=== PATIENT | female | born 1980 | race Hispanic/Latino ===

== ENCOUNTER 2020-09-11 04:16 | Emergency (ER) | payer OTHER, SELFPAY ==
[2020-09-11 05:18] LABS: Urine Blood NEGATIVE (NEG); Urine Glucose NEGATIVE (NEG); Urine Protein 1+ (NEG); Urine pH 8.5 (5.0-7.0)
[2020-09-11 06:25] LABS: Absolute Lymphocytes (CBC) 1.4 K/uL (0.7-4.9); Basophils % 0.6 % (0-1.3); Hematocrit 41.1 % (36.0-45.0); Lymphocytes % 9.9 % (15.3-44.8); MPV 8.3 fL (7.6-11.3)
[2020-09-11 06:52] LABS: ALT/SGPT 25 U/L (12-78); AST/SGOT 19 U/L (15-37); Albumin 4.1 g/dL (3.4-5.0); Alkaline Phosphatase 101 U/L (45-117); BUN Blood Urea Nitrogen 6 mg/dL (7-18); Bicarbonate 24 mmol/L (21-32); Bilirubin Direct < 0.1 mg/dL (0-0.2); Bilirubin Total 0.3 mg/dL (0.2-1.0); Glucose Level 132 mg/dL (74-106); Lipase 104 U/L (73-393); Potassium 3.6 mmol/L (3.5-5.1); Protein, Total 9.4 g/dL (6.4-8.2); Sodium Level 143 mmol/L (136-145)
[2020-09-11 06:55] LABS: Blood Morphology Comment NOT SEEN (NOT SEEN); Platelet Estimate ADEQ; White Blood Cell Scan OK (OK)
[2020-09-11] MEDS ORDERED: ONDANSETRON 4 MG/2 ML VIAL ONE (08:12)
[2020-09-11] MEDS ORDERED: NA CHLORIDE 0.9% 1,000 ML ONE (08:13)
--- NOTE | 2020-09-11 08:18 | RAD REPORT ---
EXAM DESCRIPTION: CTAbdomen Pelvis W Contrast - 09/11/2020 7:59 am CLINICAL HISTORY: Abdominal pain. ABD PAIN COMPARISON: No comparisons TECHNIQUE: Biphasic CT imaging of the abdomen and pelvis was performed with 100 ml non-ionic IV cont rast. All CT scans are performed using dose optimization technique as appropriate and may include automated exposure control or mA/KV adjustment according to patient size. FINDINGS: The lung bases are clear. Cholecystectomy clips. The liver, spleen, pancreas, adrenal glands and kidneys are within normal limits. No bowel obstruction, free air, free fluid or abscess. The appendix is normal. No evidence of signi ficant lymphadenopathy. No suspicious bony findings. IMPRESSION: No acute intra-abdominal or pelvic finding.
--- NOTE | 2020-09-11 09:23 | ER ---
[facility] Name: Grace Reich Age: 40 yrs Sex: Female : 1980 Arrival Date: 09/11/2020 Time: 04:17 Bed 19 Private MD: Diagnosis: Nausea and vomiting;Diarrhea, unspecified;Gastroenteritis;Abdominal and pelvic pain Presentation: 09/11 04:25 Chief complaint: Patient states: she has had non-stop vomiting with diarrhea and lower bb left abdominal pain since 1900 last night. Coronavirus screen: Client reports previous positive COVID test result. Date of collection: February 2020. Ebola Screen: No symptoms or risks identified at this time. Initial Sepsis Screen: Does the patient meet any 2 criteria? No. Patient's initial sepsis screen is negative. Does the patient have a suspected source of infection? No. Patient's initial sepsis screen is negative. Risk Assessment: Do you want to hurt yourself or someone else? Patient reports no desire to harm self or others. Onset of symptoms was September 10, 2020. 04:25 Method Of Arrival: Ambulatory bb 04:25 Acuity: FRANDY 3 bb Triage Assessment: 04:27 General: Appears uncomfortable, Behavior is calm, cooperative. Pain: Complains of pain bb in abdomen Pain currently is 7 out of 10 on a pain scale. Neuro: Level of Consciousness is awake, alert, obeys commands, Oriented to person, place, time, situation. Respiratory: Respiratory effort is even, unlabored, Respiratory pattern is regular. GI: Reports lower abdominal pain, diarrhea, vomiting. RESEARCH CHEF: 04:27 LMP 08/27/2020 bb Historical: - Allergies: 04:27 No Known Allergies; bb - Home Meds: 04:27 None [Active]; bb - PMHx: 04:27 None; bb - PSHx: 04:27 Cholecystectomy; bb - Immunization history:: Adult Immunizations up to date. - Social history:: Smoking status: Patient denies any tobacco usage or history of. Screenin:14 Abuse screen: Denies threats or abuse. Denies injuries from another. Nutritional sf screening: No deficits noted. Tuberculosis screening: No symptoms or risk factors identified. Never had TB. Possible symptoms: None Risk factors: None. Fall Risk None identified. No fall in past 12 months (0 pts). No secondary diagnosis (0 pts). IV access (20 points). Ambulatory Aid- None/Bed Rest/Nurse Assist (0 pts). Gait- Normal/Bed Rest/Wheelchair (0 pts) Mental Status- Oriented to own ability (0 pts). Total Alvarenga Fall Scale indicates No Risk (0-24 pts). Assessment: 06:12 General: Appears uncomfortable, Behavior is calm, cooperative, appropriate for age. sf Pain: Complains of pain in left lower quadrant. Neuro: No deficits noted. Level of Consciousness is awake, alert, obeys commands, Oriented to person, place, time, situation, Appropriate for age. Cardiovascular: Patient's skin is warm and dry. Respiratory: No deficits noted. Airway is patent Respiratory effort is even, unlabored, Respiratory pattern is regular, symmetrical. GI: Abdomen is non-distended, Abd is soft X 4 quads Abdomen is tender to palpation in left lower quadrant Reports lower abdominal pain, diarrhea, nausea, vomiting. : No signs and/or symptoms were reported regarding the genitourinary system. 08:09 Reassessment: Patient appears in no apparent distress at this time. Patient and/or iw family updated on plan of care and expected duration. Pain level reassessed. Patient is alert, oriented x 3, equal unlabored respirations, skin warm/dry/pink. reports nausea but no pain, awaiting CT results Patient denies pain at this time. Vital Signs: 04:25 BP 113 / 73; Pulse 104; Resp 16 S; Temp 97.9(O); Pulse Ox 99% on R/A; Weight 72.57 kg bb (R); Height 5 ft. 5 in. (165.10 cm) (R); Pain 7/10; 06:12 BP 106 / 64; Pulse 96; Resp 16; Pulse Ox 99% ; sf 04:25 Body Mass Index 26.63 (72.57 kg, 165.10 cm) bb ED Course: 04:17 Patient arrived in ED. cl3 04:27 Triage completed. bb 04:27 Arm band placed on Patient placed in waiting room, Patient notified of wait time. bb 05:57 Gabe Ramos MD is Attending Physician. tw4 05:59 Rubin Lipscomb RN is Primary Nurse. sf 06:03 Inserted saline lock: 20 gauge in right antecubital area, using aseptic technique. mw2 Blood collected. 06:14 Patient has correct armband on for positive identification. Bed in low position. Call sf light in reach. Side rails up X 1. Pulse ox on. NIBP on. Door closed. Noise minimized. Visitors limited. Lights dimmed. Warm blanket given. Verbal reassurance given. 07:07 Primary Nurse role handed off by Rubin Lipscomb, MAURISIO bp 07:07 John Camargo, MAURISIO is Primary Nurse. bp 07:22 Attending Physician role handed off by Gabe Ramos MD kdr 07:22 Claudy Mata MD is Attending Physician. kdr 07:50 Primary Nurse role handed off by John Camargo RN iw 07:50 Julissa Joy RN is Primary Nurse. iw 07:59 CT Abd/Pelvis - IV Contrast Only In Process Unspecified. EDMS 09:37 No provider procedures requiring assistance completed. IV discontinued, intact, iw bleeding controlled, No redness/swelling at site. Pressure dressing applied. Administered Medications: 08:08 Drug: Zofran (Ondansetron) 4 mg Route: IVP; Site: right antecubital; iw 09:29 Follow up: Response: No adverse reaction; Nausea is decreased iw 08:08 Drug: NS 0.9% 1000 ml Route: IV; Rate: 1 bolus; Site: right antecubital; iw 09:29 Follow up: IV Status: Completed infusion iw Outcome: 09:23 Discharge ordered by . kdr 09:37 Discharged to home ambulatory. iw 09:37 Condition: good 09:37 Discharge instructions given to patient, Instructed on discharge instructions, follow up and referral plans. medication usage, Demonstrated understanding of instructions, follow-up care, medications, Prescriptions given X 2. 09:37 Patient left the ED. iw Signatures: Dispatcher [employer] EDMS Claudy Mata MD MD kdr Chitra Menendez RN RN bb Julissa Joy RN RN iw John Camargo, MAURISIO FORDE bp Gabe Ramos MD MD tw4 Kaykay Bender mw2 Paco Fang cl3 Rubin Lipscomb, MAURISIO FORDE sf
--- NOTE | 2020-09-11 09:23 | EDPHYS ---
Physician Documentation [facility] Name: Grace Reich Age: 40 yrs Sex: Female : 1980 Arrival Date: 09/11/2020 Time: 04:17 Bed 19 Private MD: ED Physician Claudy Mata HPI: 09/11 08:54 This 40 yrs old Female presents to ER via Ambulatory with complaints of Low kdr Abdominal Pain, Vomiting. 08:54 The patient presents to the emergency department with nausea, that is mild, vomiting, kdr that is intermittent, diarrhea, that is intermittent, abdominal pain, of the left lower quadrant, described as achy, dull, vague,\E\ and does not radiate. Onset: The symptoms/episode began/occurred last night, at 19:00. Possible causes: unknown. The symptoms are aggravated by nothing. The symptoms are alleviated by nothing. Associated signs and symptoms: The patient has no apparent associated signs or symptoms. Severity of symptoms: At their worst the symptoms were moderate in the emergency department the symptoms are unchanged. The patient has not experienced similar symptoms in the past. The patient has not recently seen a physician. [employer] FAB[employer]ICATION: 04:27 LMP 08/27/2020 bb Historical: - Allergies: 04:27 No Known Allergies; bb - Home Meds: 04:27 None [Active]; bb - PMHx: 04:27 None; bb - PSHx: 04:27 Cholecystectomy; bb - Immunization history:: Adult Immunizations up to date. - Social history:: Smoking status: Patient denies any tobacco usage or history of. ROS: 08:54 Constitutional: Negative for fever, chills, and weight loss, Eyes: Negative for injury, kdr pain, redness, and discharge, ENT: Negative for injury, pain, and discharge, Neck: Negative for injury, pain, and swelling, Cardiovascular: Negative for chest pain, palpitations, and edema, Respiratory: Negative for shortness of breath, cough, wheezing, and pleuritic chest pain, Back: Negative for injury and pain, : Negative for injury, bleeding, discharge, and swelling, MS/Extremity: Negative for injury and deformity, Skin: Negative for injury, rash, and discoloration, Neuro: Negative for headache, weakness, numbness, tingling, and seizure activity. Psych: Negative for depression, anxiety, suicide ideation, homicidal ideation, and hallucinations, Allergy/Immunology: Negative for hives, rash, and allergies, Endocrine: Negative for neck swelling, polydipsia, polyuria, polyphagia, and marked weight changes, Hematologic/Lymphatic: Negative for swollen nodes, abnormal bleeding, and unusual bruising. 08:54 Abdomen/GI: Positive for abdominal pain, nausea, vomiting, and diarrhea, Negative for abdominal distension, anorexia, dysphagia, hematemesis, black/tarry stool, rectal pain, rectal bleeding, bowel incontinence. Exam: 08:54 Constitutional: This is a well developed, well nourished patient who is awake, alert, kdr and in no acute distress. Head/Face: Normocephalic, atraumatic. Eyes: Pupils equal round and reactive to light, extra-ocular motions intact. Lids and lashes normal. Conjunctiva and sclera are non-icteric and not injected. Cornea within normal limits. Periorbital areas with no swelling, redness, or edema. Neck: Trachea midline, no thyromegaly or masses palpated, and no cervical lymphadenopathy. Supple, full range of motion without nuchal rigidity, or vertebral point tenderness. No Meningismus. Chest/axilla: Normal chest wall appearance and motion. Nontender with no deformity. No lesions are appreciated. Cardiovascular: Regular rate and rhythm with a normal S1 and S2. No gallops, murmurs, or rubs. Normal PMI, no JVD. No pulse deficits. Respiratory: Lungs have equal breath sounds bilaterally, clear to auscultation and percussion. No rales, rhonchi or wheezes noted. No increased work of breathing, no retractions or nasal flaring. Back: No spinal tenderness. No costovertebral tenderness. Full range of motion. Skin: Warm, dry with normal turgor. Normal color with no rashes, no lesions, and no evidence of cellulitis. MS/ Extremity: Pulses equal, no cyanosis. Neurovascular intact. Full, normal range of motion. Neuro: Awake and alert, GCS 15, oriented to person, place, time, and situation. Cranial nerves II-XII grossly intact. Motor strength 5/5 in all extremities. Sensory grossly intact. Cerebellar exam normal. Normal gait. Psych: Awake, alert, with orientation to person, place and time. Behavior, mood, and affect are within normal limits. 08:54 Abdomen/GI: Inspection: abdomen appears normal, Bowel sounds: diminished, in all quadrants, Palpation: soft, mild abdominal tenderness, in the left lower quadrant, mass, is not appreciated, rebound tenderness, is not appreciated, voluntary guarding, is not appreciated. Vital Signs: 04:25 BP 113 / 73; Pulse 104; Resp 16 S; Temp 97.9(O); Pulse Ox 99% on R/A; Weight 72.57 kg bb (R); Height 5 ft. 5 in. (165.10 cm) (R); Pain 7/10; 06:12 BP 106 / 64; Pulse 96; Resp 16; Pulse Ox 99% ; sf 04:25 Body Mass Index 26.63 (72.57 kg, 165.10 cm) bb MDM: 08:54 Data reviewed: vital signs, nurses notes, lab test result(s), radiologic studies. kdr Counseling: I had a detailed discussion with the patient and/or guardian regarding: the historical points, exam findings, and any diagnostic results supporting the discharge/admit diagnosis, lab results, radiology results, the need for outpatient follow up. 09:23 Patient medically screened. kdr 09:25 ED course: The patient was greatly improved with the interventions given and was happy kdr about the plan for discharge and follow-up. 09/11 04:25 Order name: Basic Metabolic Panel; Complete Time: 07:41 09/11 04:25 Order name: CBC with Diff; Complete Time: 07:41 09/11 04:25 Order name: Hepatic Function; Complete Time: 07:41 09/11 04:25 Order name: Lipase; Complete Time: 07:41 09/11 05:11 Order name: Urine Dipstick--Ancillary (enter results); Complete Time: 07:41 09/11 05:11 Order name: Urine --Ancillary (enter results); Complete Time: 07:41 09/11 04:25 Order name: IV Saline Lock; Complete Time: 06:08 09/11 04:25 Order name: Labs collected and sent; Complete Time: 06:08 09/11 05:11 Order name: Urine Dipstick-Ancillary (obtain specimen); Complete Time: 06:08 09/11 05:11 Order name: Urine Test (obtain specimen); Complete Time: 06:07 mw2 09/11 06:27 Order name: CBC Smear Scan; Complete Time: 07:41 EDNM 09/11 07:40 Order name: CT Abd/Pelvis - IV Contrast Only; Complete Time: 08:52 kdr 09/11 08:54 Order name: PO challenge; Complete Time: 09:29 kdr Administered Medications: 08:08 Drug: Zofran (Ondansetron) 4 mg Route: IVP; Site: right antecubital; iw 09:29 Follow up: Response: No adverse reaction; Nausea is decreased iw 08:08 Drug: NS 0.9% 1000 ml Route: IV; Rate: 1 bolus; Site: right antecubital; iw 09:29 Follow up: IV Status: Completed infusion iw Disposition: 09/11/20 09:23 Discharged to Home. Impression: Nausea and vomiting, Diarrhea, unspecified, Gastroenteritis, Abdominal and pelvic pain. - Condition is Stable. - Discharge Instructions: Nausea and Vomiting, Adult, [id number], Abdominal Pain, Adult, [id number], Diarrhea, Adult, [id number]. - Prescriptions for Zofran 4 mg Oral Tablet - take 1 tablet by ORAL route every 4-6 hours As needed; 12 tablet. Tramadol 50 mg Oral Tablet - take 1 tablet by ORAL route every 8 hours as needed; 12 tablet. - Medication Reconciliation Form, Thank You Letter, Prescription Opioid Use, Work release form form. - Follow up: Private Physician; When: 2 - 3 days; Reason: If symptoms return, Further diagnostic work-up, Recheck today's complaints, Continuance of care, Re-evaluation by your physician. - Problem is new. - Symptoms have improved. Signatures: Dispatcher [employer] EDNM Claudy Mata MD MD kdr Ballard, Brenda, RN RN bb Julissa Joy RN RN iw Gabe Ramos MD MD [facility] Kaykay Bender mw2 Corrections: (The following items were deleted from the chart) 09:23 09:23 09/11/2020 09:23 Discharged to Home. Impression: Nausea and vomiting; Diarrhea, kdr unspecified; Gastroenteritis. Condition is Stable. Forms are Medication Reconciliation Form, Thank You Letter, Antibiotic Education, Prescription Opioid Use. Follow up: Private Physician; When: 2 - 3 days; Reason: If symptoms return, Further diagnostic work-up, Recheck today's complaints, Continuance of care, Re-evaluation by your physician. Problem is new. Symptoms have improved. kdr 09:37 09:23 09/11/2020 09:23 Discharged to Home. Impression: Nausea and vomiting; Diarrhea, iw unspecified; Gastroenteritis; Abdominal and pelvic pain. Condition is Stable. Forms are Medication Reconciliation Form, Thank You Letter, Antibiotic Education, Prescription Opioid Use. Follow up: Private Physician; When: 2 - 3 days; Reason: If symptoms return, Further diagnostic work-up, Recheck today's complaints, Continuance of care, Re-evaluation by your physician. Problem is new. Symptoms have improved. kdr
[2020-09-11 09:46] VITALS: TEMP 97.9; O2SAT 99
[2020-09-11 09:47] VITALS: BP 106/64
== END 2020-09-11 09:37 | disposition home or self-care (01) ==
LOC: ER 04:16
DX: K52.9 Noninfective gastroenteritis and colitis, unspecified (principal)
CPT/HCPCS: 36415; 74177; 80048; 80076; 81003; 81025; 83690; 85025; 96361; 96374; 99284; J2405; J7030; Q9967

== ENCOUNTER 2021-01-09 10:07 | Emergency (ER) | payer SELFPAY ==
[2021-01-09 10:31] LABS: Urine Blood 2+ (Negative); Urine Glucose Negative (Negative); Urine Protein Trace (Negative); Urine Specific Gravity 1.025 (1.005-1.030); Urine pH 5.5 (5.0-7.0)
[2021-01-09] MEDS ORDERED: ONDANSETRON 4 MG/2 ML VIAL ONE (10:40)
[2021-01-09] MEDS ORDERED: NA CHLORIDE 0.9% 1,000 ML ONE (10:40)
[2021-01-09] MEDS ORDERED: KETOROLAC 30 MG/ML INJ ONE (11:02)
[2021-01-09 11:46] LABS: Urine Specific Gravity/Preg 1.025 (1.005-1.030)
[2021-01-09 11:52] LABS: Absolute Lymphocytes (CBC) 0.7 K/uL (0.7-4.9); Basophils % 0.9 % (0-1.3); Hematocrit 40.7 % (36.0-45.0); Lymphocytes % 7.8 % (15.3-44.8); MPV 8.8 fL (7.6-11.3); RBC Red Blood Cell Count 4.89 M/uL (3.86-4.86)
[2021-01-09 12:42] LABS: ALT/SGPT 31 U/L (12-78); AST/SGOT 21 U/L (15-37); Alkaline Phosphatase 83 U/L (45-117); BUN Blood Urea Nitrogen 6 mg/dL (7-18); Bicarbonate 23 mmol/L (21-32); Bilirubin Direct 0.1 mg/dL (0-0.2); Bilirubin Total 0.6 mg/dL (0.2-1.0); Glucose Level 107 mg/dL (74-106); Lipase 129 U/L (73-393); Potassium 3.4 mmol/L (3.5-5.1); Sodium Level 139 mmol/L (136-145)
[2021-01-09 12:44] LABS: Blood Morphology Comment NOT SEEN (NOT SEEN); Platelet Estimate ADEQ; White Blood Cell Scan OK (OK)
--- NOTE | 2021-01-09 12:50 | ER ---
Nurse's Notes [facility] Name: Grace Reich Age: 40 yrs Sex: Female : 1980 Arrival Date: 01/09/2021 Time: 10:11 Bed 14 Private MD: Diagnosis: Nausea with vomiting, unspecified Presentation: 01/09 10:15 Chief complaint: N/V, subjective fever, and chills upon waking today. Received the second Moderna COVID vaccine yesterday. Coronavirus screen: Client presents with at least one sign or symptom that may indicate coronavirus-19. Standard/surgical mask placed on the client. Ebola Screen: No symptoms or risks identified at this time. Initial Sepsis Screen: Does the patient meet any 2 criteria? HR > 90 bpm. Does the patient have a suspected source of infection? No. Patient's initial sepsis screen is negative. Risk Assessment: Do you want to hurt yourself or someone else? Patient reports no desire to harm self or others. Onset of symptoms was January 09, 2021. 10:15 Method Of Arrival: Ambulatory hb 10:15 Acuity: FRANDY 3 hb Historical: - Allergies: 10:17 No Known Allergies; hb - Home Meds: 10:17 None [Active]; hb - PMHx: 10:17 None; hb - PSHx: 10:17 Cholecystectomy; hb - Social history:: Patient/guardian denies using alcohol, street drugs, The patient lives with family. - Family history:: not pertinent. - Hospitalizations: : No recent hospitalization is reported. Screenin:36 Abuse screen: Denies threats or abuse. Nutritional screening: No deficits noted. vg1 Tuberculosis screening: No symptoms or risk factors identified. Fall Risk No fall in past 12 months (0 pts). No secondary diagnosis (0 pts). IV access (20 points). Ambulatory Aid- None/Bed Rest/Nurse Assist (0 pts). Gait- Normal/Bed Rest/Wheelchair (0 pts) Mental Status- Oriented to own ability (0 pts). Total Alvarenga Fall Scale indicates No Risk (0-24 pts). Assessment: 10:24 General: Appears in no apparent distress. comfortable, Behavior is calm, cooperative. vg1 Pain: Complains of pain in left shoulder and ABD Pain currently is 5 out of 10 on a pain scale. Pain began this morning around 0200. Neuro: Level of Consciousness is awake, alert, obeys commands, Oriented to person, place, time, situation. Cardiovascular: Patient's skin is warm and dry. Respiratory: Airway is patent Respiratory effort is even, unlabored. GI: Abdomen is round non-distended, Reports nausea, vomiting, since this morning around 0200. : No signs and/or symptoms were reported regarding the genitourinary system. EENT: No signs and/or symptoms were reported regarding the EENT system. Derm: Skin is intact, is healthy with good turgor. Musculoskeletal: Circulation, motion, and sensation intact. 12:05 Reassessment: Patient appears in no apparent distress at this time. Patient and/or vg1 family updated on plan of care and expected duration. Pain level reassessed. Patient is alert, oriented x 3, equal unlabored respirations, skin warm/dry/pink. Patient denies pain at this time. Patient states feeling better. 13:02 Reassessment: Patient appears in no apparent distress at this time. No changes from vg1 previously documented assessment. Patient and/or family updated on plan of care and expected duration. Pain level reassessed. Patient is alert, oriented x 3, equal unlabored respirations, skin warm/dry/pink. Vital Signs: 10:15 BP 127 / 77; Pulse 109; Resp 16; Temp 98.9; Pulse Ox 100% ; Pain 5/10; hb 10:36 BP 128 / 86; Pulse 108; Resp 18; Pulse Ox 99% on R/A; vg1 12:05 BP 118 / 82; Pulse 90; Resp 14; Pulse Ox 100% on R/A; vg1 ED Course: 10:11 Patient arrived in ED. ds1 10:16 Triage completed. hb 10:17 Arm band placed on. hb 10:18 Elizabeth Bell MD is Attending Physician. ma2 10:18 Corinne Bryan RN is Primary Nurse. vg1 10:34 Initial lab(s) drawn, by me, sent to lab. Urine collected: clean catch specimen, clear. mh5 Inserted saline lock: 22 gauge in right antecubital area, using aseptic technique. Blood collected. 10:35 Patient has correct armband on for positive identification. Placed in gown. Bed in low mh5 position. Call light in reach. Side rails up X 1. Warm blanket given. Pulse ox on. NIBP on. 10:36 Basic Metabolic Panel Sent. 5 10:36 CBC with Diff Sent. 5 10:36 Hepatic Function Sent. 5 10:36 Lipase Sent. 5 11:00 Missed attempt(s): 22 gauge in left hand. vg1 11:08 Inserted saline lock: 22 gauge in left antecubital area, using aseptic technique. vg1 ,using aseptic technique. Completed by MAURISIO Infante. 13:02 No provider procedures requiring assistance completed. IV discontinued, intact, vg1 bleeding controlled, No redness/swelling at site. Pressure dressing applied. Administered Medications: 10:33 Drug: NS 0.9% 1000 ml Route: IV; Rate: 1 bolus; Site: right antecubital; vg1 11:07 Follow up: IV SiteChange: left antecubital; IV SiteChange Reason: Infiltration vg1 12:07 Follow up: IV Status: Completed infusion; IV Intake: 1000ml vg1 10:34 Drug: Zofran (Ondansetron) 4 mg Route: IVP; Site: right antecubital; vg1 12:07 Follow up: Response: No adverse reaction; Nausea is decreased vg1 11:07 Drug: TORadol (ketorolac) 30 mg Route: IVP; Site: left antecubital; vg1 12:06 Follow up: Response: No adverse reaction; Pain is decreased vg1 Intake: 12:07 IV: 1000ml; Total: 1000ml. vg1 Outcome: 12:49 Discharge ordered by . [facility] 13:02 Discharged to home ambulatory. vg1 13:02 Condition: stable 13:02 Discharge instructions given to patient, Instructed on discharge instructions, follow up and referral plans. medication usage, Demonstrated understanding of instructions, follow-up care, medications, Prescriptions given X 2. 13:03 Patient left the ED. vg1 Signatures: Alla Briggs 1 Ignacia Singleton, Ernestina Wheeler RN [facility] Elizabeth Bell MD MD ma2 Garcia, Victoria, RN RN vg1
--- NOTE | 2021-01-09 12:50 | EDPHYS ---
Physician Documentation [facility] Name: Grace Reich Age: 40 yrs Sex: Female : 1980 Arrival Date: 01/09/2021 Time: 10:11 Bed 14 Private MD: ED Physician Elizabeth Bell HPI: 01/09 10:57 This 40 yrs old Female presents to ER via Ambulatory with complaints of ma2 Vomiting, Fever. 10:57 The patient presents to the emergency department with nausea, vomiting. Onset: The ma2 symptoms/episode began/occurred gradually, 1 day(s) ago. Associated signs and symptoms: Pertinent negatives: constipation, dysuria, flatulence, GI bleeding. Severity of symptoms: At their worst the symptoms were very mild in the emergency department the symptoms have improved. The patient has experienced a previous episode. s/p covid vaccine yesterday . Historical: - Allergies: 10:17 No Known Allergies; hb - Home Meds: 10:17 None [Active]; hb - PMHx: 10:17 None; hb - PSHx: 10:17 Cholecystectomy; hb - Social history:: Patient/guardian denies using alcohol, street drugs, The patient lives with family. - Family history:: not pertinent. - Hospitalizations: : No recent hospitalization is reported. ROS: 10:57 Constitutional: Negative for fever, chills, and weight loss. ma2 10:57 All other systems are negative. Exam: 10:57 Constitutional: This is a well developed, well nourished patient who is awake, alert, ma2 and in no acute distress. ENT: Nares patent. No nasal discharge, no septal abnormalities noted. Tympanic membranes are normal and external auditory canals are clear. Oropharynx with no redness, swelling, or masses, exudates, or evidence of obstruction, uvula midline. Mucous membranes moist. Neck: Trachea midline, no thyromegaly or masses palpated, and no cervical lymphadenopathy. Supple, full range of motion without nuchal rigidity, or vertebral point tenderness. No Meningismus. Chest/axilla: Normal chest wall appearance and motion. Nontender with no deformity. No lesions are appreciated. Cardiovascular: Regular rate and rhythm with a normal S1 and S2. No gallops, murmurs, or rubs. Normal PMI, no JVD. No pulse deficits. Respiratory: Lungs have equal breath sounds bilaterally, clear to auscultation and percussion. No rales, rhonchi or wheezes noted. No increased work of breathing, no retractions or nasal flaring. Abdomen/GI: Soft, non-tender, with normal bowel sounds. No distension or tympany. No guarding or rebound. No evidence of tenderness throughout. Back: No spinal tenderness. No costovertebral tenderness. Full range of motion. Skin: Warm, dry with normal turgor. Normal color with no rashes, no lesions, and no evidence of cellulitis. MS/ Extremity: Pulses equal, no cyanosis. Neurovascular intact. Full, normal range of motion. Neuro: Awake and alert, GCS 15, oriented to person, place, time, and situation. Cranial nerves II-XII grossly intact. Motor strength 5/5 in all extremities. Sensory grossly intact. Cerebellar exam normal. Normal gait. Vital Signs: 10:15 BP 127 / 77; Pulse 109; Resp 16; Temp 98.9; Pulse Ox 100% ; Pain 5/10; hb 10:36 BP 128 / 86; Pulse 108; Resp 18; Pulse Ox 99% on R/A; vg1 12:05 BP 118 / 82; Pulse 90; Resp 14; Pulse Ox 100% on R/A; vg1 MDM: 10:34 Patient medically screened. ma2 10:57 Differential diagnosis: Nonspecific abd pain, gastritis, viral gastroenteritis, ma2 gastroenteritis. Data reviewed: vital signs, nurses notes. Counseling: I had a detailed discussion with the patient and/or guardian regarding: the historical points, exam findings, and any diagnostic results supporting the discharge/admit diagnosis, the presence of at least one elevated blood pressure reading (>120/80) during this emergency department visit, the need for outpatient follow up. Response to treatment: the patient's symptoms have markedly improved after treatment. 01/09 10:19 Order name: Basic Metabolic Panel; Complete Time: 12:48 [facility] 01/09 10:19 Order name: CBC with Diff; Complete Time: 12:48 [facility] 01/09 10:19 Order name: Hepatic Function; Complete Time: 12:48 [facility] 01/09 10:19 Order name: Lipase; Complete Time: 12:48 [facility] 01/09 10:31 Order name: Urine Dipstick-Ancillary; Complete Time: 12:04 [facility] 01/09 10:42 Order name: Urine --Ancillary (enter results) bd 01/09 10:19 Order name: IV Saline Lock; Complete Time: 10:33 [facility] 01/09 10:19 Order name: Labs collected and sent; Complete Time: 10:34 [facility] 01/09 10:19 Order name: Urine Dipstick-Ancillary (obtain specimen); Complete Time: 10:31 [facility] 01/09 10:42 Order name: Urine --Ancillary; Complete Time: 12:04 ED[facility] 01/09 12:02 Order name: CBC Smear Scan; Complete Time: 12:48 EDMS Administered Medications: 10:33 Drug: NS 0.9% 1000 ml Route: IV; Rate: 1 bolus; Site: right antecubital; vg1 11:07 Follow up: IV SiteChange: left antecubital; IV SiteChange Reason: Infiltration vg1 12:07 Follow up: IV Status: Completed infusion; IV Intake: 1000ml vg1 10:34 Drug: Zofran (Ondansetron) 4 mg Route: IVP; Site: right antecubital; vg1 12:07 Follow up: Response: No adverse reaction; Nausea is decreased vg1 11:07 Drug: TORadol (ketorolac) 30 mg Route: IVP; Site: left antecubital; vg1 12:06 Follow up: Response: No adverse reaction; Pain is decreased vg1 Disposition: 01/09/21 12:49 Discharged to Home. Impression: Nausea with vomiting, unspecified. - Condition is Stable. - Discharge Instructions: Nausea and Vomiting, Adult. - Prescriptions for Zofran 4 mg Oral Tablet - take 1 tablet by ORAL route every 12 hours As needed; 20 tablet. Diclofenac Sodium 75 mg Oral Tablet Sustained Release - take 1 tablet by ORAL route 2 times per day; 30 tablet. - Medication Reconciliation Form, Thank You Letter, Antibiotic Education, Prescription Opioid Use form. - Follow up: Private Physician; When: Tomorrow; Reason: Continuance of care. Signatures: Dispatcher [employer] EDND Ignacia Singleton RN RN hb Alzahri, Mohammad, MD MD ak2 Corinne Bryan RN RN vg1 Corrections: (The following items were deleted from the chart) 13:03 12:49 01/09/2021 12:49 Discharged to Home. Impression: Nausea with vomiting, vg1 unspecified. Condition is Stable. Discharge Instructions: Nausea and Vomiting, Adult. Prescriptions for Zofran 4 mg Oral Tablet - take 1 tablet by ORAL route every 12 hours As needed; 20 tablet, Diclofenac Sodium 75 mg Oral Tablet Sustained Release - take 1 tablet by ORAL route 2 times per day; 30 tablet. and Forms are Medication Reconciliation Form, Thank You Letter, Antibiotic Education, Prescription Opioid Use. Follow up: Private Physician; When: Tomorrow; Reason: Continuance of care. ma2
[2021-01-09 13:12] VITALS: TEMP 98.9
[2021-01-09 13:15] VITALS: BP 118/82; O2SAT 100
== END 2021-01-09 13:03 | disposition home or self-care (01) ==
LOC: ER 10:07
DX: R11.2 Nausea with vomiting, unspecified (principal)
CPT/HCPCS: 36415; 80048; 80076; 81003; 81025; 83690; 85025; 99284; J2405; J7030

== ENCOUNTER 2025-03-02 13:54 | Emergency (ER) | payer OTHER ==
--- OUTSIDE RECORDS SUMMARY | 2025-03-02 13:57 | XMS REPORT | Continuity of Care Document ---
Author Name Unknown Address [address] [place] [address] [facility] Address 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 Name Role Phone JOSE RAFAEL DAVID Attending Clinician Unavailable Payers Payer Name Policy Type Policy Number Effective Date Expirati on Date Source SILVER [employer] 94 [id number] 2024 00:00:00 Encounters Start Date/Time End Date/Time Encounter Type Admission Type Attending Clinicians Care Facility Care Department Encounter ID Source 2024-11-22 14:50:30 2024-11-22 14:50:30 Outpatient [facility] [id number] Pedro 2024-09-04 09:30:00 2024-09-04 09:30:00 Outpatient JOSE RAFAEL DAVID [id number] Ann Marie Christiansen 2024-09-03 08:00:00 2024-09-03 08:00:00 Outpatient JOSE RAFAEL DAVID [id number] Ann Marie Christiansen 2024-08-08 08:32:30 2024-08-08 08:32:30 Outpatient [facility] [id number] Pedro 2024-07-20 11:24:50 2024-07-20 11:24:50 Outpatient [facility] [id number] Be[address] Schafer Pedro 2024-07-19 16:24:17 2024-07-19 16:24:17 Outpatient [facility] [id number] Be[address] Schafer Pedro 2024-03-21 10:29:50 2024-03-21 10:29:50 Outpatient [facility] [id number] Bereket Vasquez 2023-12-27 13:29:28 2023-12-27 13:29:28 Outpatient [facility] [id number] Bereket Vasquez 2023-12-19 15:36:06 2023-12-19 15:36:06 Outpatient [facility] [id number] Bereket Vasquez Results Test Description Test Time Test Comments Results Result Co mments Source HEPATITIS A [id number] 01:24:22* Test Item Value Reference Range Interpretation Comme nts HEPATITIS A IgM (test code = 2728) NON-REACTIVE NON-REACTIVE UNLESS OTHERW ISE INDICATED, ALL TESTING PERFORMED AT [facility] [address] [place] [address] [employer] ANIMAL CARETAKER: JORDI KAYE M.D. [place] NUMBER [id number] [facility] [place]. [id number] ALBUMIN/CREATININE RATIO, URINE, [id number] 01:09:02* Test Item Value Reference Range Interpretation Comme nts CREATININE, URINE, CONC. (test code = 2072) 257.3 MG/DL NOT ESTAB ALBUMIN, URINE, RANDOM (test code = 44320) 1.5 MG/DL NOT ESTAB CALC ALBUMIN/CREAT, RND (test code = 42573) 6 MG/G <30 Note: Albumin/Creatinine ratio reference interval reflects ADA and NKF guidelines. COMPREHENSIVE METABOLIC [id number] 23:20:00* Test Item Value Reference Range Interpretation Comme nts GLUCOSE (test code = 2217) 89 MG/DL 70-99 BUN (test code = 2208) 5 MG/DL 6-20 L CREATININE (test code = 2214) 0.72 MG/DL 0.60-1.30 eGFR (2020 CKD-EPI) (test code = 64260) 105 ML/MIN/1.73 >60 CALC BUN/CREAT (test code = 2235) 7 RATIO 6-28 SODIUM (test code = 2231) 138 MEQ/L 133-146 POTASSIUM (test code = 2228) 4.0 MEQ/L 3.5-5.4 CHLORIDE (test code = 2215) 103 MEQ/L 95-107 CARBON DIOXIDE (test code = 2206) 23 MEQ/L 19-31 CALCIUM (test code = 2208) 9.4 MG/DL 8.5-10.5 PROTEIN, TOTAL (test code = 222) 7.5 G/DL 6.1-8.3 ALBUMIN (test code = 2201) 4.2 G/DL 3.5-5.2 CALC GLOBULIN (test code = 2240) 3.3 G/DL 1.9-3.7 CALC A/G RATIO (test code = 2234) 1.3 RATIO 1.0-2.6 BILIRUBIN, TOTAL (test code = 2206) 0.3 MG/DL <=1.2 ALKALINE PHOSPHATASE (test code = 2203) 99 U/L 40-116 AST (test code = 2218) 26 U/L 9-40 ALT (test code = 221) 28 U/L 5-40 LIPID [id number] 23:20:00* Test Item Value Reference Range Interpretation Comme nts CHOLESTEROL (test code = 2210) 200 MG/DL <200 H TRIGLYCERIDES (test code = 2) 77 MG/DL <150 HDL CHOLESTEROL (test code = 2219) 54 MG/DL >39 CALC LDL CHOL (test code = 2236) 129 MG/DL <100 H NOTE: CALCULATED LDL IS BASED ON NETTA-WILL METHOD WHICHINCLUDES ADJUSTABLE TRIGLYCERIDE:VLDL CHOLESTEROL RATIO.THIS FACTOR VARIES BY MEASURED TRIGLYCERIDE AND NON-HDLCHOLESTEROL CONCENTRATIONS WITH INCREASED CALCULATED LDL SEENIN HIGHER TRIGLYCERIDE OR LOWER NON-HDL SPECIMENS. FOR MOREINFORMATION, SEE CLIENT ANNOUNCEMENT AT [email or web address] RATIO LDL/HDL (test code = 2238) 2.39 RATIO <3.22 HEMOGLOBIN [id number] 01:45:09* Test Item Value Reference Range Interpretation Comme nts HEMOGLOBIN A1c (test code = 22637) 5.8 % 4.2-5.6 H [employer]ATION GUIDELINES FOR HGB A1C: PREDIABETES/INCREASED RISK . . . . . . . 5.7-6.4% DIAGNOSIS OF DIABETES . . . . . . . . . >=6.5% WITH CONFIRMATION OR APPROPRIATE SYMPTOMS NOTE: ASSAY MAY BE AFFECTED BY HEMOGLOBINOPATHIES (SICKLE CELL ANEMIA, S-C DISEASE, OTHERS) OR ARTIFICIALLY LOWERED BY DECREASED RED CELL SURVIVAL (HEMOLYTIC ANEMIAS, BLOOD LOSS, ETC.). CONSIDER ALTERNATE TESTING OR LABORATORY CONSULTATION. MARGE REFLEX AUTOIMMUNE AB [id number] 23:05:24* Test Item Value Reference Range Interpretation Comme nts ANTI-NUCLEAR ANTIBODIES (test code = 3506) NEGATIVE NEGATIVE Methodology is I ndirect Immunofluorescent Assay (IFA) with a titering system using [id number] cells (Hep2 cells transfected with SS-A/Ro). MARGE PATTERN (REPORTED TITER) (test code = 59283) SEE BELOW HOMOGENEOUS (test code = 39751) NEGATIVE TITER NEGATIVE SPECKLED (test code = 038828) NEGATIVE TITER NEGATIVE DENSE FINE SPECKLED (test code = 93310) NEGATIVE TITER NEGATIVE CENTROMERE (test code = 068108) NEGATIVE TITER NEGATIVE COARSE SPECKLED (test code = 941143) NEGATIVE TITER NEGATIVE DISCRETE NUCLEAR DOTS (test code = 622391) NEGATIVE TITER NEGATIVE NUCLEOLAR (test code = 484099) NEGATIVE TITER NEGATIVE NUCLEAR MEMBRANE (test code = 791759) NEGATIVE TITER NEGATIVE CYTO. RETICULAR (BRISA) (test code = 755060) NEGATIVE NEGATIVE COMMENTS (test code = 608104) NONE METHOD (test code = 24012) (NOTE) TESTING PERFORME D BY [employer] IFA PLATFORM.THE METHOD INCLUDES A SCREEN THRESHOLD OF 1:80, DIGITIZED AND COMPUTER ALGORITHM-ASSISTED INTERPRETATION OF TITERS AND DIGITAL PATTERNS, AND HEp-2 CELL LINE SUBSTRATE. ADDITIONAL UNUSUAL PATTERNS WILL BE GIVEN COMMENTS.FOR MORE INFORMATION, SEE [email or web address] UNLESS OTHERWISE INDICATED, ALL TESTING PERFORMED AT [facility] [address] [place] [address] NON[employer] ANIMAL CARETAKER: JORDI KAYE M.D. CLIA NUMBER [id number] [facility] [place]. [id number] COMPREHENSIVE METABOLIC [id number] 05:15:09* Test Item Value Reference Range Interpretation Comme nts GLUCOSE (test code = 2217) 75 MG/DL 70-99 BUN (test code = 2208) 7 MG/DL 6-20 CREATININE (test code = 2214) 0.71 MG/DL 0.60-1.30 eGFR (2020 CKD-EPI) (test code = 51778) 107 ML/MIN/1.73 >60 CALC BUN/CREAT (test code = 2235) 10 RATIO 6-28 SODIUM (test code = 2231) 141 MEQ/L 133-146 POTASSIUM (test code = 2228) 4.5 MEQ/L 3.5-5.4 CHLORIDE (test code = 2215) 103 MEQ/L 95-107 CARBON DIOXIDE (test code = 2205) 23 MEQ/L 19-31 CALCIUM (test code = 2208) 9.6 MG/DL 8.5-10.5 PROTEIN, TOTAL (test code = 2228) 7.9 G/DL 6.1-8.3 ALBUMIN (test code = 2200) 4.5 G/DL 3.5-5.2 CALC GLOBULIN (test code = 2239) 3.4 G/DL 1.9-3.7 CALC A/G RATIO (test code = 2233) 1.3 RATIO 1.0-2.6 BILIRUBIN, TOTAL (test code = 2206) 0.3 MG/DL <=1.2 ALKALINE PHOSPHATASE (test code = 2203) 100 U/L 40-115 AST (test code = 2217) 19 U/L 9-40 ALT (test code = 2218) 21 U/L 5-40 TSH, THIRD [id number] 04:42:48* Test Item Value Reference Range Interpretation Comme [facility] TSH, THIRD GENERATION (test code = 2821) 2.840 UIU/ML 0.400-4.100 HEMOGLOBIN [id number] 03:57:28* Test Item Value Reference Range Interpretation Comme [facility] HEMOGLOBIN A1c (test code = 09676) 6.0 % 4.2-5.6 H [employer] S ASSOCIATION GUIDELINES FOR HGB A1C: PREDIABETES/INCREASED RISK . . . . . . . 5.7-6.4% DIAGNOSIS OF DIABETES . . . . . . . . . >=6.5% WITH CONFIRMATION OR APPROPRIATE SYMPTOMS NOTE: ASSAY MAY BE AFFECTED BY HEMOGLOBINOPATHIES (SICKLE CELL ANEMIA, S-C DISEASE, OTHERS) OR ARTIFICIALLY LOWERED BY DECREASED RED CELL SURVIVAL (HEMOLYTIC ANEMIAS, BLOOD LOSS, ETC.). CONSIDER ALTERNATE TESTING OR LABORATORY CONSULTATION. CBC W/AUTO DIFF WITH [id number] 03:32:32* Test Item Value Reference Range Interpretation Comme nts WBC (test code = 1001) 9.4 K/UL 3.5-11.0 RBC (test code = 1002) 5.05 M/UL 3.80-5.40 HEMOGLOBIN (test code = 1003) 12.8 G/DL 11.5-15.5 HEMATOCRIT (test code = 1004) 40.1 % 34.0-45.0 MCV (test code = 1005) 79.4 fL 80.0-99.0 L MCH (test code = 1006) 25.3 PG 25.0-33.0 MCHC (test code = 1007) 31.9 G/DL 31.0-36.0 RDW (test code = 1038) 15.2 % 11.5-15.0 H NEUTROPHILS (test code = 1008) 60.2 % LYMPHOCYTES (test code = 1010) 32.3 % MONOCYTES (test code = 1011) 4.4 % EOSINOPHILS (test code = 1012) 2.2 % BASOPHILS (test code = 1013) 0.7 % IMMATURE GRANULOCYTES (test code = 1036) 0.2 % NUCLEATED RBCS (test code = 1065) 0.0 /100 WBC'S See_Comment [Automated messa ge] The system which generated this result transmitted reference range: 0.0. The reference range was not used to interpret this result as normal/abnormal. PLATELET COUNT (test code = 1015) 457 K/UL 130-400 H ABSOLUTE NEUTROPHILS (test code = 1066) 5.67 K/UL 1.50-7.50 ABSOLUTE LYMPHOCYTES (test code = 1067) 3.05 K/UL 1.00-4.00 ABSOLUTE MONOCYTES (test code = 1068) 0.42 K/UL 0.20-1.00 ABSOLUTE EOSINOPHILS (test code = 1040) 0.21 K/UL 0.00-0.50 ABSOLUTE BASOPHILS (test code = 1069) 0.07 K/UL 0.00-0.20 ABS IMMATURE GRANULOCYTES (test code = 1020) 0.02 K/UL 0.00-0.10 ABS NUCLEATED RBCS (test code = 00514) 0.00 K/UL 0.00-0.11
[2025-03-02] MEDS ORDERED: NA CHLORIDE 0.9% 1,000 ML ONE (15:00)
[2025-03-02] MEDS ORDERED: MORPHINE 4 MG/ML SYR ONE (15:00)
[2025-03-02] MEDS ORDERED: ONDANSETRON 4 MG/2 ML VIAL ONE ×2 (15:00→15:26)
[2025-03-02 15:13] LABS: Absolute Lymphocytes (CBC) 2.0 K/uL (0.7-4.9); Hematocrit 40.0 % (36.0-45.0); Hemoglobin 13.1 g/dL (12.0-15.0); MCH 24.7 pg (27.0-35.0); MCHC 32.8 g/dL (32.0-36.0); MCV 75.3 fL (80-100); MPV 7.7 fL (7.6-11.3); Nucleated RBC Absolute Count 0.0 (0-0); Nucleated Red Blood Cells % 0.1 % (0-0); RBC Red Blood Cell Count 5.31 M/uL (3.86-4.86); White Blood Count 9.60 thou/uL (4.3-10.9)
[2025-03-02 15:18] LABS: Sqamous Epithelial <5 /HPF (None Seen); Urine Crystals Unidentified Few /HPF (None Seen); Urine Culture Reflex Order NOT NEEDED; Urine Microscopic Reflex YN ORDER UMIC
[2025-03-02 15:42] LABS: ALT/SGPT 28.0 U/L (13-56); AST/SGOT 11.0 U/L (15-37); Albumin 3.4 g/dL (3.4-5.0); Albumin/Globulin Ratio 0.8 (1.1-1.8); Alkaline Phosphatase 100.0 U/L (45-117); Anion Gap 8.5 mEq/L (5.0-15.0); BUN Blood Urea Nitrogen 6.0 mg/dL (7-18); Globulin 4.4 g/dL (2.3-3.5); Glucose Level 114.0 mg/dL (74-106); Lipase 30.0 U/L (13-75); Potassium 3.5 mEq/L (3.5-5.1)
[2025-03-02] MEDS ORDERED: METOCLOPRAMIDE 10 MG/2mL INJ ONE (16:37)
--- NOTE | 2025-03-02 16:53 | RAD REPORT ---
Stone Protocol CLINICAL INDICATION: Female, 44 years old.FLANK PAIN TECHNIQUE: CT abdomen and pelvis was performed, without IV contrast, as per department protocol using a CT stone protocol. Axial, sagittal and coronal reconstructions were obtained. One or more of the following dose reduction techniques were used: Automated exposure control, adjustment of the mA and/o r kV according to the patient size, and/or iterative reconstruction. Unless otherwise specified, incidental findings do not require dedicated imaging follow-up. [id number]. IV CONTRAST: Not administered. COMPARISON: 09/11/2020 FINDINGS: The lack of intravenous contrast limits the sensitivity of this exam for evaluation of solid visceral organs, vascular structures, and retroperitoneum. LOWER CHEST: No acute process identified.No significant pericardial effusion. Small hiatal hernia. UPPER GI: No significant abnormality. LIVER: Hepatic steatosis, but otherwise unremarkable. GALLBLADDER/BILE DUCTS: Cholecystectomy. Mild extra-hepatic biliary ductal dilatation is likely relat ed to the post-cholecystectomy state. Consider correlating with LFT's.? PANCREAS: No mass, ductal dilation, or cam-pancreatic fluid. SPLEEN: Unremarkable. ADRENALS: No adrenal masses. KIDNEYS AND URETERS: No hydronephrosis.Limited evaluation for renal lesions in the absence of IV cont rast.No renal calculi.No ureteral calculi. ABDOMINAL AORTA AND OTHER VESSELS: Normal caliber aorta and IVC. PERITONEUM: No abnormal free fluid. No free air. LYMPH NODES: No pathologic lymphadenopathy. ABDOMINAL WALL: Unremarkable SMALL BOWEL/COLON: Small bowel has normal course and caliber. No colonic wall thickening or pericolon ic inflammatory changes.Normal appendix. URINARY BLADDER: Underdistended but grossly unremarkable. REPRODUCTIVE ORGANS: No pathologic process. Tubal ligation clips. MUSCULOSKELETAL: No acute or suspicious osseous abnormality. ADDITIONAL FINDINGS: None. IMPRESSION: No acute findings within the abdomen or pelvis. No urinary tract calculi. Normal appendix.
--- NOTE | 2025-03-02 17:29 | EDPHYS ---
Physician Documentation [facility] Name: Grace Gant Age: 44 yrs Sex: Female : 1980 Arrival Date: 03/02/2025 Time: 13:54 Bed 6 Private MD: ED Physician Leslie Joy HPI: 03/02 14:10 This 44 yrs old Female presents to ER via Ambulatory with complaints of Back kb Pain - MID-LOWER, Abdominal Pain - RQ, Nausea. 14:10 Pt is a 44 year old female who presents for right flank pain that radiates to right kb lower quadrant for 5 days. States pain has progressively gotten worse. reports nausea and slight diarrhea. Denies vomiting, fever, urinary symptoms . 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 - Infectious Disease History:: Denies. - Social history:: Smoking status: Patient denies any tobacco usage or history of. ROS: 14:08 Constitutional: As per HPI kb Exam: 14:08 Constitutional: This is a well developed, well nourished patient who is awake, alert, kb and in no acute distress. Head/Face: Normocephalic, atraumatic. ENT: Moist Mucous membranes Cardiovascular: Regular rate Respiratory: Respirations even and unlabored. No increased work of breathing. Talking in full sentences Skin: Warm, dry with normal turgor. Normal color. MS/ Extremity: Pulses equal, no cyanosis. Neurovascular intact. Full, normal range of motion. Neuro: Awake and alert, GCS 15, oriented to person, place, time, and situation. 14:08 Abdomen/GI: Inspection: abdomen appears normal, Bowel sounds: normal, Palpation: soft, in all quadrants, mild abdominal tenderness, in the right upper quadrant and right lower quadrant, 14:09 Back: CVA tenderness, that is mild, is noted on the right, kb Vital Signs: 14:03 BP 118 / 83; Pulse 78; Resp 18 S; Temp 98(TE); Pulse Ox 99% on R/A; aa5 16:18 BP 105 / 77; Pulse 63; Resp 15; Pulse Ox 99% ; me1 17:00 BP 116 / 78; Pulse 88; Resp 16; Pulse Ox 99% ; me1 MDM: 13:59 Medical Screening Exam initiated kb 17:55 Differential diagnosis: gastritis, gastroesophageal reflux disease, non-specific abd kb pain, pancreatitis, Peptic Ulcer Disease. Data reviewed: vital signs, nurses notes. I considered the following discharge prescriptions or medication management in the emergency department Antibiotics: At this time antibiotics are not recommended, zofran and bentyl prescribed to manage symptoms at home. Historians other than the Patient: Spouse/Significant Other: spouse. Counseling: I had a detailed discussion with the patient and/or guardian regarding the historical points, exam findings, and any diagnostic results supporting the discharge/admit diagnosis, lab results, radiology results, the need for outpatient follow up, a family practitioner, to return to the emergency department if symptoms worsen or persist or if there are any questions or concerns that arise at home. ED course: Pt tolerating po intake upon discharge. 03/02 14:42 Order name: CBC with Diff; Complete Time: 15:29 kb 03/02 14:42 Order name: CMP; Complete Time: 15:45 kb 03/02 14:42 Order name: Lipase; Complete Time: 15:45 kb 03/02 14:42 Order name: Test, Urine; Complete Time: 15:29 kb 03/02 14:42 Order name: UA Rfx Rick Cult if indicated; Complete Time: 15:19 kb 03/02 15:47 Order name: CT Stone Protocol; Complete Time: 16:55 kb 03/02 14:42 Order name: IV Saline Lock; Complete Time: 14:58 kb 03/02 14:42 Order name: Labs collected and sent; Complete Time: 14:58 kb 03/02 17:27 Order name: PO challenge; Complete Time: 18:01 kb Administered Medications: 15:04 Drug: Ondansetron IVP 4 mg IVP once; over 2 minutes Route: IVP; Site: right forearm; me1 18:00 Follow up: Response: No adverse reaction; Nausea unchanged me1 15:04 Drug: NS 0.9% IV 1000 ml IV at 1 bolus Per protocol; to be given as a bolus over 60 me1 minutes Route: IV; Rate: 1 bolus; Site: right forearm; 18:00 Follow up: Response: No adverse reaction; IV Status: Completed infusion me1 15:05 Drug: morphine IVP or IV 4 mg IVP once over 4 mins Route: IVP; Infused Over: 4 mins; me1 Site: right forearm; 18:00 Follow up: Response: No adverse reaction; Pain is decreased me1 15:36 Drug: Ondansetron IVP 4 mg IVP once; over 2 minutes Route: IVP; Site: right forearm; cf3 16:36 Follow up: Response: No adverse reaction; Nausea unchanged me1 16:39 Drug: metoCLOPramide IVP 10 mg IVP once; over 1 to 2 minutes Route: IVP; Site: right me1 antecubital; 18:01 Follow up: Response: No adverse reaction; Nausea is decreased me1 Disposition Summary: 03/02/25 17:28 Discharge Ordered Notes: Location: Home kb Condition: Stable kb Diagnosis - Nausea with vomiting, unspecified kb - Abdominal pain, Generalized kb Followup: kb - With: Emergency Department - When: As needed - Reason: Worsening of condition Followup: kb - With: Private Physician - When: 2 - 3 days - Reason: Recheck today's complaints, Continuance of care, Re-evaluation by your physician Discharge Instructions: - Discharge Summary Sheet kb - Nausea and Vomiting, Adult, [id number] kb - Abdominal Pain, Adult, [id number] kb Forms: - Medication Reconciliation Form kb - Antibiotic Education kb - Prescription Opioid Use kb - Patient Portal Instructions kb - Leadership Thank You Letter kb Prescriptions: - Zofran 4 mg Oral tablet - take 1 tablet ORAL route every 6 hours As needed; 12 tablet; Refills: 0, kb Product Selection Permitted - dicyclomine 20 mg Oral tablet - take 1 tablet ORAL route 4 times per day As needed; 20 tablet; Refills: 0, kb Product Selection Permitted Signatures: Dispatcher [employer] Margaux Evans FNP-C FNP-Tamika Caba, RN RN aa5 Magdalena Edwards RN RN me1 Doe Gardner RN RN cf3
--- NOTE | 2025-03-02 17:29 | ER ---
Nurse's Notes [facility] Name: Grace Gant Age: 44 yrs Sex: Female : 1980 Arrival Date: 03/02/2025 Time: 13:54 Bed 6 Private MD: Diagnosis: Nausea with vomiting, unspecified;Abdominal pain, Generalized Presentation: 03/02 14:03 Chief complaint: Chief complaint: Patient states: right flank x 5 days ago, reports me1 nausea and diarrhea. 14:03 Acuity: FRANDY 3 aa5 14:03 Coronavirus screen: At this time, the client does not indicate any symptoms associated aa5 with coronavirus-19. Ebola Screen: Patient denies travel to an Ebola-affected area in the 21 days before illness onset. Initial Sepsis Screen: Does the patient meet any 2 criteria? No. Patient's initial sepsis screen is negative. Does the patient have a suspected source of infection? No. Patient's initial sepsis screen is negative. Risk Assessment: Do you want to hurt yourself or someone else? Patient reports no desire to harm self or others. Onset of symptoms was February 2025. 14:03 Method Of Arrival: Ambulatory aa5 VIDEO INTERN: 18:04 LMP N/A - Irregular menses, Not me1 Historical: - Allergies: 14:03 No Known Allergies; aa5 - Home Meds: 14:03 None [Active]; aa5 - PMHx: 14:03 None; aa5 - PSHx: 14:03 Cholecystectomy; aa5 - Immunization history:: Adult Immunizations up to date. - Infectious Disease History:: Denies. - Social history:: Smoking status: Patient denies any tobacco usage or history of. Screenin:24 [facility] ED Fall Risk Assessment (Adult) History of falling in the last 3 months, me1 including since admission No falls in past 3 months (0 pts) Confusion or Disorientation No (0 pts) Intoxicated or Sedated No (0 pts) Impaired Gait No (0 pts) Mobility Assist Device Used No (0 pt) Altered Elimination No (0 pt) Score/Fall Risk Level 0 - 2 = Low Risk Maintained a safe environment, Provided non-skid footwear, Hourly rounding (assess needs \T\ fall precautionary measures) done. Abuse screen: Denies threats or abuse. Nutritional screening: No deficits noted. Tuberculosis screening: No symptoms or risk factors identified. Assessment: 14:24 General: Appears uncomfortable, obese, well groomed, well developed, Behavior is calm, me1 cooperative, appropriate for age, Reports right flank x 5 days ago, reports nausea and diarrhea. Pain: Complains of pain in right flank Pain radiates to right lower quadrant and right upper quadrant Pain currently is 8 out of 10 on a pain scale. Quality of pain is described as sharp, shooting, Pain began 5 days ago Is continuous. Neuro: Level of Consciousness is awake, alert, obeys commands, Oriented to person, place, time, situation, Appropriate for age. Cardiovascular: Patient's skin is warm and dry. Respiratory: Airway is patent Respiratory effort is even, unlabored, Respiratory pattern is regular, symmetrical. GI: Reports lower abdominal pain, upper abdominal pain, diarrhea, nausea, since 5 days ago. : No signs and/or symptoms were reported regarding the genitourinary system. EENT: No signs and/or symptoms were reported regarding the EENT system. Derm: Skin is intact, is healthy with good turgor, Skin is normal. Musculoskeletal: No signs and/or symptoms reported regarding the musculoskeletal system. Circulation, motion, and sensation intact. Range of motion: intact in all extremities. Vital Signs: 14:03 BP 118 / 83; Pulse 78; Resp 18 S; Temp 98(TE); Pulse Ox 99% on R/A; aa5 16:18 BP 105 / 77; Pulse 63; Resp 15; Pulse Ox 99% ; me1 17:00 BP 116 / 78; Pulse 88; Resp 16; Pulse Ox 99% ; me1 ED Course: 13:58 Patient arrived in ED. cj3 13:59 Margaux Chan FNP-C [facility] kb 13:59 Leslie Joy MD is Attending Physician. kb 14:03 Arm band placed on. aa5 14:05 Triage completed. aa5 14:21 Magdalena Edwards, MAURISIO is Primary Nurse. me1 14:24 Patient has correct armband on for positive identification. Bed in low position. Call me1 light in reach. Side rails up X2. Provided Education on: POC. Verbalized understanding.. Client placed on continuous cardiac and pulse oximetry monitoring. NIBP monitoring applied. Pulse ox on. NIBP on. 14:24 No provider procedures requiring assistance completed. me1 14:58 CBC with Diff Sent. me1 14:58 CMP Sent. me1 14:58 Lipase Sent. me1 14:58 Test, Urine Sent. me1 14:58 UA Rfx Rick Cult if indicated Sent. me1 14:58 Initial lab(s) drawn, by me, sent to lab. Urine collected: clean catch specimen, me1 cloudy. Inserted saline lock: 22 gauge in right forearm, using aseptic technique. Blood collected. Flushed with 10 mL NS. 16:29 CT Stone Protocol In Process Unspecified. EDMS 18:04 IV discontinued, intact, bleeding controlled, No redness/swelling at site. Pressure me1 dressing applied. Administered Medications: 15:04 Drug: Ondansetron IVP 4 mg IVP once; over 2 minutes Route: IVP; Site: right forearm; me1 18:00 Follow up: Response: No adverse reaction; Nausea unchanged me1 15:04 Drug: NS 0.9% IV 1000 ml IV at 1 bolus Per protocol; to be given as a bolus over 60 me1 minutes Route: IV; Rate: 1 bolus; Site: right forearm; 18:00 Follow up: Response: No adverse reaction; IV Status: Completed infusion me1 15:05 Drug: morphine IVP or IV 4 mg IVP once over 4 mins Route: IVP; Infused Over: 4 mins; mn1 Site: right forearm; 18:00 Follow up: Response: No adverse reaction; Pain is decreased me1 15:36 Drug: Ondansetron IVP 4 mg IVP once; over 2 minutes Route: IVP; Site: right forearm; 3 16:36 Follow up: Response: No adverse reaction; Nausea unchanged me1 16:39 Drug: metoCLOPramide IVP 10 mg IVP once; over 1 to 2 minutes Route: IVP; Site: right me1 antecubital; 18:01 Follow up: Response: No adverse reaction; Nausea is decreased me1 Medication: 14:24 VIS not applicable for this client. me1 Outcome: 17:28 Discharge ordered by MD. luna 18:04 Discharged to home ambulatory, with significant other, me1 18:04 Condition: stable 18:04 Discharge instructions given to patient, significant other, Instructed on discharge instructions, follow up and referral plans. medication usage, Demonstrated understanding of instructions, follow-up care, medications, Prescriptions given X 2, 18:05 Patient left the ED. me1 Signatures: Dispatcher [employer] Margaux Evans, LEGAL BILLING ANALYST-C LEGAL BILLING ANALYST-Tamika Caba RN RN aa5 Magdalena Edwards RN RN me1 Cass Dhillon cj3 Doe Gardner RN RN [id number] Corrections: (The following items were deleted from the chart) 14:09 14:03 Chief complaint: aa5 aa5 14:24 14:03 Chief complaint: Patient states: right flank x 5 days ago, reports nausea and me1 diarrhea. Chief complaint: Patient states: right flank x 5 days ago, reports nausea and diarrhea. aa5
[2025-03-02 18:52] VITALS: TEMP 98; O2SAT 99
[2025-03-02 18:55] VITALS: BP 116/78
== END 2025-03-02 18:05 | disposition home or self-care (01) ==
LOC: ER 13:54
DX: R10.84 Generalized abdominal pain (principal); R11.2 Nausea with vomiting, unspecified
CPT/HCPCS: 85025; 81001; 36415; 81025; 83690; 80053; 76377; 74176; 99284; J2765; J2405 ×2; J7030